=== PATIENT | female | born 2000 | race Caucasian/White ===

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

== ENCOUNTER 2021-10-26 08:46 | Emergency (ER) | payer OTHER ==
[~2021-10-26] VITALS: Ht 160 cm; Wt 113.4 kg
[~2021-10-26 08:46] MED LIST changes: +FLONASE ALLERG9.9 ML NAS
[2021-10-26 09:19] LABS: BASO # 0.1 10*3/uL (0.0-0.1); BASO % 0.4 % (0.0-1.0); EOS # 0.1 10*3/uL (0.0-0.4); EOS % 0.8 % (1.0-4.0); HEMATOCRIT 39.2 % (37.0-47.0); LYMPH % 23.6 % (27.0-41.0); MEAN CELL VOLUME 77.8 fl (81.0-99.0); MEAN CORPUSCULAR HGB 24.8 pg (27.0-31.0); MEAN CORPUSCULAR HGB CONC 31.9 g/dl (33.0-37.0); MEAN PLATELET VOLUME 9.2 fl (9.6-12.3); MONO # 0.8 10*3/uL (0.1-1.0); NEUT # 8.8 10*3/uL (2.3-7.9); NEUT % 68.9 % (47.0-73.0); PLATELET COUNT AUTOMATED 403 10*3/uL (130-400); RED BLOOD COUNT 5.04 10*6/uL (4.10-5.10); RED CELL DISTRI WIDTH 14.8 % (0-14.5); WHITE BLOOD COUNT 12.8 10*3/uL (4.8-10.8)
[2021-10-26 09:36] LABS: ALBUMIN 3.8 gm/dl (3.1-4.5); ALKALINE PHOSPHATASE 94 U/L (45-117); BUN 16 mg/dl (7-24); CHLORIDE 109 mmol/L (98-107); CREATININE 0.66 mg/dL (0.55-1.02); LIPASE 106 U/L (73-393); POTASSIUM 3.3 mmol/L (3.5-5.1); SGOT/AST 22 IU/L (3-35); SGPT/ALT 33 U/L (12-78); SODIUM 140 mmol/L (136-145); TOTAL PROTEIN 8.1 gm/dL (6.4-8.2)
[2021-10-26 09:44] LABS: BETA-HCG, QUANT < 1.0 mIU/mL (1-3)
== END 2021-10-26 12:35 | disposition home or self-care (01) ==
LOC: ED 08:46
PROVIDERS: Emergency Medicine
DX: T58.91XA Toxic effect of carbon monoxide from unspecified source, accidental (unintentional), initial encounter (principal); Z79.899 Other long term (current) drug therapy; Y92.89 Other specified places as the place of occurrence of the external cause

== ENCOUNTER 2021-12-08 12:01 | Emergency (ER) | payer OTHER ==
[~2021-12-08] VITALS: Ht 160 cm; Wt 113.4 kg
[2021-12-08 15:19] LABS: BASO # 0.1 10*3/uL (0.0-0.1); BASO % 0.5 % (0.0-1.0); EOS # 0.3 10*3/uL (0.0-0.4); EOS % 3.3 % (1.0-4.0); HEMATOCRIT 38.5 % (37.0-47.0); LYMPH % 32.3 % (27.0-41.0); MEAN CELL VOLUME 79.1 fl (81.0-99.0); MEAN CORPUSCULAR HGB 24.2 pg (27.0-31.0); MEAN CORPUSCULAR HGB CONC 30.6 g/dl (33.0-37.0); MEAN PLATELET VOLUME 9.4 fl (9.6-12.3); MONO # 0.5 10*3/uL (0.1-1.0); MONO % 5.9 % (3.0-9.0); NEUT # 5.3 10*3/uL (2.3-7.9); NEUT % 57.8 % (47.0-73.0); PLATELET COUNT AUTOMATED 359 10*3/uL (130-400); RED BLOOD COUNT 4.87 10*6/uL (4.10-5.10); RED CELL DISTRI WIDTH 14.4 % (0-14.5); WHITE BLOOD COUNT 9.1 10*3/uL (4.8-10.8)
[2021-12-08 15:32] LABS: ACT PARTIAL THROMBO TIME 30.8 SECONDS (20.0-32.1)
[2021-12-08 15:33] LABS: BILIRUBIN Negative (Negative); BLOOD Negative (Negative); CLARITY Turbid (Clear); COLOR Yellow (Yellow); GLUCOSE Negative (Negative); KETONE Negative (Negative); LEUKO ESTERASE Negative (Negative); NITRITE Negative (Negative); SPECIFIC GRAVITY 1.025 (1.001-1.030)
[2021-12-08 15:36] LABS: BUN 17 mg/dl (7-24); CHLORIDE 113 mmol/L (98-107); CREATININE 0.75 mg/dL (0.55-1.02); LIPASE 99 U/L (73-393); POTASSIUM 3.5 mmol/L (3.5-5.1); SGOT/AST 14 IU/L (3-35); SGPT/ALT 27 U/L (12-78); SODIUM 138 mmol/L (136-145)
[2021-12-08 15:38] LABS: ALKALINE PHOSPHATASE 86 U/L (45-117); TOTAL PROTEIN 7.5 gm/dL (6.4-8.2)
[2021-12-08 15:49] LABS: EPITHELIAL CELLS 0-2; RBC 0-2 rbc/hpf (0-2)
== END 2021-12-08 21:49 | disposition home or self-care (01) ==
LOC: ED 12:01
PROVIDERS: Physician Assistant
DX: G43.109 Migraine with aura, not intractable, without status migrainosus (principal); Z79.899 Other long term (current) drug therapy; Z90.89 Acquired absence of other organs; Z98.890 Other specified postprocedural states

== ENCOUNTER → 2022-10-16 | Outpatient (CLI) | payer BC | END | disposition home or self-care (01) | LOC: LAB 11:03 | DX: Z51.81 Encounter for therapeutic drug level monitoring (principal) ==